=== PATIENT | female | born 1960 | race Hispanic/Latino ===

== ENCOUNTER 2016-12-05 21:10 | Emergency (ER) | payer OTHER ==
[2016-12-05 21:17] VITALS: BP 129/88; PULSE 61; RESP 17; TEMP 98.1; O2SAT 100
--- NOTE | 2016-12-05 23:14 | ED PDOC ---
Upper Extremity Pain/Injury Time Seen by Provider: 12/05/16 21:26 Chief Complaint (Nursing): Finger,Hand,&Wrist Chief Complaint (Provider): Right middle finger injury History Per: Patient History/Exam Limitations: no limitations Onset/Duration Of Symptoms: Mins Current Symptoms Are (Timing): Still Present Quality: Dull Severity: Moderate Pain Scale Rating Of: 5 Additional Complaint(s): Pt took motrin of her own on arrival to ER. Pt states she was walking her dog and he pulled suddenly to gus a rabbit. Pt states it resulted in right middle finger injury. Past Medical History Reviewed: Historical Data, Nursing Documentation, Vital Signs Vital Signs: Last Vital Signs Temp 98.1 F 12/05/16 21:15 Pulse 61 12/05/16 21:15 Resp 17 12/05/16 21:15 BP 129/88 12/05/16 21:15 Pulse Ox 100 12/05/16 21:15 - Medical History PMH: No Chronic Diseases - Surgical History Surgical History: No Surg Hx - Family History Family History: States: No Known Family Hx - Living Arrangements Living Arrangements: With Family - Social History Current smoker - smoking cessation education provided: No - Allergies Allergies/Adverse Reactions: Allergies Allergy/AdvReac Type Severity Reaction Status Date / Time corn Allergy RASH Verified 12/05/16 21:18 corn syrup Allergy RASH Verified 12/05/16 21:18 Review of Systems ROS Statement: Except As Marked, All Systems Reviewed And Found Negative Musculoskeletal: Positive for: Other Physical Exam - Reviewed Nursing Documentation Reviewed: Yes Vital Signs Reviewed: Yes - Physical Exam Appears: Positive for: Well, Non-toxic, No Acute Distress Head Exam: Positive for: ATRAUMATIC, NORMAL INSPECTION, NORMOCEPHALIC Skin: Positive for: Warm. Negative for: Normal Color ((+) ecchymosis ) Eye Exam: Positive for: Normal appearance ENT: Positive for: Normal ENT Inspection Neck: Positive for: Normal, Painless ROM Respiratory: Negative for: Accessory Muscle Use, Respiratory Distress Back: Positive for: Normal Inspection Extremity: Positive for: Deformity (PIP), Swelling. Negative for: Normal ROM, Tenderness Neurologic/Psych: Positive for: Alert - ECG O2 Sat by Pulse Oximetry: 100 Medical Decision Making Medical Decision Making: (+) dislocation at the PIP After reduction pt reports improvement of pain. (+) rotation of finger present. Normal capillary refill. Pts fingers elo taped. Discussed f/u with hand specialist. Disposition - Clinical Impression Clinical Impression: Dislocation, finger - Patient ED Disposition Is Patient to be Admitted: No Counseled Patient/Family Regarding: Diagnosis, Need For Followup - Disposition Referrals: Ari Kapoor MD [Medical Doctor] - Disposition: Routine/Home Disposition Time: 23:15 Condition: GOOD Instructions: Finger Dislocation (ED)
--- NOTE | 2016-12-06 13:10 | RAD ---
PROCEDURE: Right Hand Radiographs. HISTORY: middle finger deformity COMPARISON: None. FINDINGS: BONES: Normal. No fracture. JOINTS: There is a flexion deformity at the PIP joint 3rd finger. This could be a secondary to trigger finger on abnormality. Clinical correlation recommended. SOFT TISSUES: Normal. OTHER FINDINGS: None. IMPRESSION: Flexion deformity at the PIP joint 3rd finger likely representing trigger finger. Follow-up orthopedic consultation suggested
== END 2016-12-05 23:24 | disposition home or self-care (01) ==
LOC: H.ER 21:10
DX: S63.282A Dislocation of proximal interphalangeal joint of right middle finger, initial encounter (principal); X50.9XXA Other and unspecified overexertion or strenuous movements or postures, initial encounter; Y92.89 Other specified places as the place of occurrence of the external cause